=== PATIENT | male | born 1985 | race African-American/Black ===

== ENCOUNTER 2016-12-25 21:55 | Emergency (ER) | payer OTHER ==
[~2016-12-25] VITALS: Ht 180.3 cm; Wt 93.0 kg
[~2016-12-25 21:55] MED LIST: IBUPROFEN600 MG ORAL; NKM; TRAMADOL HCL50 MG ORAL
[2016-12-25] MEDS ORDERED: NKM (22:03)
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
[2016-12-25] MEDS ORDERED: IBUPROFEN600 MG ORAL (22:46)
[2016-12-25] MEDS ORDERED: ROBAXIN-750750 MG PO (22:46)
[2016-12-25 23:00] VITALS: BP 155/79
--- NOTE | 2016-12-26 11:04 | Diagnostic Imaging Report ---
Indication: TRAUMA, left lower rib pain, status post Technique: One view of the chest, multiple views of the left ribs Comparison: 05/23/2016 Findings: Lungs and pleural spaces are clear. Heart size is normal. No evidence of acute rib fracture. No evidence of pneumothorax. Impression: No acute process No acute bony trauma This agrees with the preliminary interpretation provided by the emergency room physician
== END 2016-12-25 23:00 | disposition home or self-care (01) ==
LOC: EMR 22:05
DX: S20.212A Contusion of left front wall of thorax, initial encounter (principal); V49.50XA Passenger injured in collision with unspecified motor vehicles in traffic accident, initial encounter; Y92.410 Unspecified street and highway as the place of occurrence of the external cause
CPT/HCPCS: 99284

== ENCOUNTER 2017-04-23 21:26 | Emergency (ER) | payer OTHER ==
[~2017-04-23 21:26] MED LIST changes: +ROBAXIN-750750 MG PO
--- NOTE | 2017-04-23 21:40 | Emergency Room Report ---
History of Present Illness General Chief Complaint: To Be Triaged Present Illness HPI Is a 31-year-old male who checked in for chief complaint of headache. When call he didn't show up. When I came to work, I saw him on the phone outside talking. He was in no distress. No focal deficit. I did not see this patient in the ER. Allergies: Coded Allergies: No Known Allergies (Unverified , 01/24/16) Patient History Past Medical History: see triage record, old chart reviewed Past Surgical History: other Pertinent Family History: other Reviewed Nursing Documentation: PMH: Agreed, PSxH: Agreed Nursing Documentation-PMH Hx Gastrointestinal Problems: Yes - kidney stones Medical Decision Making Diagnostic Impression: Primary Impression: Headache Qualified Codes: R51 - Headache Disposition: LEFT W/OUT BEING SEEN DOUGLAS RAY M.D. Apr 23, 2017 21:40
== END 2017-04-23 21:30 | disposition left against medical advice (07) ==
LOC: EMR 21:30
DX: R51 Headache (principal); Z53.21 Procedure and treatment not carried out due to patient leaving prior to being seen by health care provider
CPT/HCPCS: 99281

== ENCOUNTER 2017-06-04 04:31 | Emergency (ER) | payer OTHER ==
[~2017-06-04] VITALS: Ht 177.8 cm; Wt 86.2 kg
[2017-06-04 04:43] VITALS: BP 128/70
[2017-06-04] MEDS ORDERED: Tetanus/Diptheria/Pertussis Vaccine 0.5ml Syr IM ONE (04:45)
--- NOTE | 2017-06-04 04:46 | Emergency Room Report ---
History of Present Illness General Chief Complaint: Laceration Source: Patient Present Illness HPI Patient is a 31-year-old male presented after increased her left middle finger pain and numbness. Patient recent injury to the tip of his finger which he cut with a meat boner and slicer. Patient said this happened at work. Injury occurred approximately 36 hours prior to arrival. Patient does not known his last tetanus vaccine. 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 Allergies: Coded Allergies: No Known Allergies (Unverified , 01/24/16) Patient History Past Medical History: see triage record Reviewed Nursing Documentation: PMH: Agreed, PSxH: Agreed Nursing Documentation-PMH Hx Gastrointestinal Problems: Yes - kidney stones Review of Systems All Other Systems: negative except mentioned in HPI Physical Exam Vital Signs Date Time Temp Pulse Resp B/P (MAP) Pulse Ox O2 Delivery O2 Flow Rate FiO2 06/04/17 04:35 97.3 74 16 125/71 96 Room Air General Appearance: well appearing, no apparent distress, alert, GCS 15 Head: normocephalic, atraumatic ENT: hearing grossly normal, normal voice Neck: full range of motion, supple Respiratory: lungs clear, normal breath sounds, no respiratory distress, speaking full sentences Gastrointestinal: normal inspection Musculoskeletal: no calf tenderness Neurologic: normal inspection, alert, oriented x3, responsive, core analysis 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 Differential diagnoses included foreign body , fracture, nerve injury, arterial injury among others.X-ray imaging of the left hand middle finger 3 view interpreted by me showed normal bony alignment without fracture. The patient's laceration is old and is not amenable for suturing. The wound was dressed with bacitracin. The patient was placed on modified work beginning on 06/05. I with limited use of his left hand. The patient is keep his left hand clean and dry. Wound to be rechecked in 3 days. Tetanus vaccine was updated Last Vital Signs Date Time Temp Pulse Resp B/P (MAP) Pulse Ox O2 Delivery O2 Flow Rate FiO2 06/04/17 04:35 97.3 74 16 125/71 96 Room Air Status: improved Disposition: HOME, SELF-CARE Condition: Stable Scripts Bacitracin Zinc* (BACITRACIN ZINC*) 1 Each Packet 1 APPLIC TOPIC THREE TIMES A DAY, #30 PACKET Prov: Humberto Rankin 06/04/17 Humberto Rankin Jun 04, 2017 04:46
[2017-06-04] MEDS ORDERED: BACITRACIN ZIN1 EACH TOPIC (04:59)
[2017-06-04] MEDS ORDERED: Bacitracin Oint UD TOPIC ONE ×2 (05:00→05:02)
[2017-06-04 05:11] VITALS: BP 128/70
--- NOTE | 2017-06-04 11:59 | Diagnostic Imaging Report ---
Indication: PAIN, trauma, status post third digit laceration Technique: 3 views of the left third digit Comparison: None Findings: No acute fractures. No dislocations. Slight irregularity of the distal soft tissues may be related to stated clinical history of laceration. No radiopaque foreign body demonstrated Impression: No acute bony trauma
== END 2017-06-04 05:15 | disposition home or self-care (01) ==
LOC: EMR 04:49
DX: S61.313A Laceration without foreign body of left middle finger with damage to nail, initial encounter (principal); W27.4XXA Contact with kitchen utensil, initial encounter; Y93.G1 Activity, food preparation and clean up; Y92.511 Restaurant or cafe as the place of occurrence of the external cause; Y99.0 Civilian activity done for income or pay; Z23 Encounter for immunization
CPT/HCPCS: 90471; 90715; 99283

== ENCOUNTER 2017-06-29 01:59 | Emergency (ER) | payer MEDICAID, OTHER ==
[~2017-06-29] VITALS: Ht 177.8 cm; Wt 83.9 kg
[~2017-06-29 01:59] MED LIST changes: +BACITRACIN ZIN1 EACH TOPIC
[2017-06-29 02:13] VITALS: BP 109/69
[2017-06-29] MEDS ORDERED: Sodium Chloride 500ML 500 ML IV ONE (02:17)
[2017-06-29] MEDS ORDERED: Mylanta II UD 30ml ORAL ONE (02:30)
[2017-06-29] MEDS ORDERED: Lidocaine 2% Visc 15ml soln ORAL ONE (02:30)
[2017-06-29] MEDS ORDERED: Dicyclomine HCl 10mg/5ml oral soln ORAL ONE (02:30)
--- NOTE | 2017-06-29 02:39 | Emergency Room Report ---
History of Present Illness General Chief Complaint: Abdominal Pain Source: Patient Present Illness HPI 32-year-old male presents ED complaining of abdominal pain and vomiting. Started around 11 PM last night. Patient describes the pain is epigastric, sharp, 8/10, nonradiating. Notes multiple episodes of nausea and vomiting. Denies chest pain or shortness of breath. Denies fevers or chills. Denies any diarrhea. Denies sick contacts or recent travel. No other aggravating relieving factors. Denies any other associated symptoms Allergies: Coded Allergies: No Known Allergies (Unverified , 01/24/16) Patient History Past Medical History: HTN Past Surgical History: none Pertinent Family History: none Social History: Denies: smoking, alcohol use, drug use Immunizations: UTD Reviewed Nursing Documentation: PMH: Agreed, PSxH: Agreed Nursing Documentation-PMH Past Medical History: No History, Except For Hx Hypertension: Yes Hx Gastrointestinal Problems: Yes - Kidney stones Review of Systems All Other Systems: negative except mentioned in HPI Physical Exam Vital Signs Date Time Temp Pulse Resp B/P (MAP) Pulse Ox O2 Delivery O2 Flow Rate FiO2 06/29/17 02:02 97.5 79 16 114/84 99 Room Air Sp02 EP Interpretation: reviewed, normal General Appearance: no apparent distress, alert, GCS 15, non-toxic Head: normocephalic, atraumatic Eyes: bilateral eye normal inspection, bilateral eye PERRL ENT: hearing grossly normal, normal pharynx, no angioedema, normal voice Neck: full range of motion, supple/symm/no masses Respiratory: chest non-tender, lungs clear, normal breath sounds, speaking full sentences Cardiovascular #1: regular rate, rhythm, no edema Cardiovascular #2: 2+ carotid (R), 2+ carotid (L), 2+ radial (R), 2+ radial (L) , 2+ dorsalis pedis (R), 2+ dorsalis pedis (L) Gastrointestinal: normal bowel sounds, soft, non-distended, no guarding, no rebound, tenderness Rectal: deferred Genitourinary: normal inspection, no CVA tenderness Musculoskeletal: back normal, gait/station normal, normal range of motion, non- tender Neurologic: alert, oriented x3, responsive, motor strength/tone normal, sensory intact, speech normal Psychiatric: judgement/insight normal, memory normal, mood/affect normal, no suicidal/homicidal ideation Reflexes: 3+ bicep (R), 3+ bicep (L), 3+ tricep (R), 3+ tricep (L), 3+ knee (R) , 3+ knee (L) Skin: normal color, no rash, warm/dry, well hydrated Lymphatic: no adenopathy Medical Decision Making Diagnostic Impression: Primary Impression: Enteritis ER Course Hospital Course 32-year-old M presents to ED with abdominal pain, vomiting Differential diagnosis includes-appendicitis, cholecystitis, small bowel obstruction, gastritis, Clinical course Patient placed on stretcher. After initial history and physical I ordered labs , IV fluids, pain medications and CT scan Labs - no leukocytosis, electrolytes ok, LFTs normal CT scan shows enteritis/jejunitis Upon reassessment, patient states pain has improved. I feel this is a highly complex case requiring extensive working including EKG/ Rhythm strip, Xray/CT/US, Blood/urine lab work, repeat exams while in ED, and administration of strong opiates/narcotics for pain control, admission to hospital or close patient follow up. Diagnosis - enteritis Stable and discharged to home with Rx Zantac, Zofran. Followup with PMD. Return to ED if symptoms recur or worsen Labs Test 06/29/17 02:15 17 02:17 Sodium Level 141 MMOL/L (136-145) Potassium Level 3.9 MMOL/L (3.5-5.1) Chloride Level 106 MMOL/L (98-107) Carbon Dioxide Level 29 MMOL/L (21-32) Anion Gap 6 mmol/L (5-15) Blood Urea Nitrogen 17 mg/dL (7-18) Creatinine 1.4 MG/DL (0.55-1.30) Estimat Glomerular Filtration Rate > 60 mL/min (>60) Glucose Level 118 MG/DL (74-106) Calcium Level 9.3 MG/DL (8.5-10.1) Total Bilirubin 0.8 MG/DL (0.2-1.0) Aspartate Amino Transf (AST/SGOT) 26 U/L (15-37) Alanine Aminotransferase (ALT/SGPT) 33 U/L (12-78) Alkaline Phosphatase 73 U/L (46-116) Total Protein 7.7 G/DL (6.4-8.2) Albumin 4.2 G/DL (3.4-5.0) Globulin 3.5 g/dL Albumin/Globulin Ratio 1.2 (1.0-2.7) Lipase 134 U/L (73-393) White Blood Count 9.5 K/UL (4.8-10.8) Red Blood Count 4.89 M/UL (4.70-6.10) Hemoglobin 15.5 G/DL (14.2-18.0) Hematocrit 46.6 % (42.0-52.0) Mean Corpuscular Volume 95 FL (80-99) Mean Corpuscular Hemoglobin 31.6 PG (27.0-31.0) Mean Corpuscular Hemoglobin Concent 33.1 G/DL (32.0-36.0) Red Cell Distribution Width 12.4 % (11.6-14.8) Platelet Count 327 K/UL (150-450) Mean Platelet Volume 8.2 FL (6.5-10.1) Neutrophils (%) (Auto) 76.8 % (45.0-75.0) Lymphocytes (%) (Auto) 11.2 % (20.0-45.0) Monocytes (%) (Auto) 9.2 % (1.0-10.0) Eosinophils (%) (Auto) 1.8 % (0.0-3.0) Basophils (%) (Auto) 1.0 % (0.0-2.0) CT/MRI/US Diagnostic Results CT/MRI/US Diagnostic Results : Imaging Test Ordered: CT A/P Impression enteritis Last Vital Signs Date Time Temp Pulse Resp B/P (MAP) Pulse Ox O2 Delivery O2 Flow Rate FiO2 06/29/17 02:13 97.5 68 16 109/69 99 Room Air Status: improved Disposition: HOME, SELF-CARE Condition: Stable Scripts Ondansetron Odt* (ZOFRAN ODT*) 4 Mg Tab.rapdis 4 MG ORAL Q6H Y for Nausea & Vomiting, #30 TAB 0 Refills Prov: BRITTNY EAGLE M.D. 06/29/17 Ranitidine Hcl* (ZANTAC*) 150 Mg Tablet 150 MG ORAL TWICE A DAY, #30 TAB Prov: BRITTNY EAGLE M.D. 06/29/17 BRITTNY EAGLE M.D. Jun 29, 2017 02:39
[2017-06-29 02:41] LABS: EOSINOPHILS % (AUTO) 1.8 % (0.0-3.0); LYMPHOCYTES % (AUTO) 11.2 % (20.0-45.0); MEAN CORPUSCULAR HEMOGLOBIN 31.6 PG (27.0-31.0); MEAN CORPUSCULAR HGB CONC 33.1 G/DL (32.0-36.0); MEAN CORPUSCULAR VOLUME 95 FL (80-99); MEAN PLATELET VOLUME 8.2 FL (6.5-10.1); MONOCYTES % (AUTO) 9.2 % (1.0-10.0); NEUTROPHILS % (AUTO) 76.8 % (45.0-75.0); PLATELET COUNT 327 K/UL (150-450); RED BLOOD COUNT 4.89 M/UL (4.70-6.10); RED CELL DISTRIBUTION WIDTH 12.4 % (11.6-14.8); WHITE BLOOD COUNT 9.5 K/UL (4.8-10.8)
[2017-06-29 02:56] LABS: ANION GAP 6 mmol/L (5-15); CALCIUM 9.3 MG/DL (8.5-10.1); CARBON DIOXIDE 29 MMOL/L (21-32); CHLORIDE 106 MMOL/L (98-107); CREATININE 1.4 MG/DL (0.55-1.30); GLOMERULAR FILTRATION RATE > 60 mL/min (>60); POTASSIUM 3.9 MMOL/L (3.5-5.1); SODIUM 141 MMOL/L (136-145)
[2017-06-29 03:00] LABS: ALANINE AMINOTRANSFERASE 33 U/L (12-78); ALBUMIN/GLOBULIN RATIO 1.2 (1.0-2.7); ASPARTATE AMINO TRANSFERASE 26 U/L (15-37); LIPASE 134 U/L (73-393); TOTAL PROTEIN 7.7 G/DL (6.4-8.2)
[2017-06-29 03:24] VITALS: BP 105/68
[2017-06-29] MEDS ORDERED: Morphine Sulfate 4mg/ml Inj IVP ONE (03:30)
[2017-06-29] MEDS ORDERED: Ketorolac 30mg Inj IV ONE (03:30)
[2017-06-29] MEDS ORDERED: RANITIDINE HCL150 MG ORAL (04:22)
[2017-06-29] MEDS ORDERED: ZOFRAN ODT4 MG ORAL (04:22)
[2017-06-29 04:46] VITALS: BP 105/68
--- NOTE | 2017-06-29 08:11 | Diagnostic Imaging Report ---
Indication: Leg pain Technique: Continuous helical scanning was performed without any contrast material from the diaphragms through the pelvis . Axial, sagittal, and coronal images were generated. Dose: Total Dose Length Product - DLP [address] Dose Index - CTDIvol(s) 14.36 mGy. Automated exposure control was utilized for dose reduction. Comparison: None Findings: The liver, gallbladder, and spleen are unremarkable. The pancreas is normal. Adrenal glands are unremarkable. The kidneys are normal. There are no renal calculi. Aorta and inferior vena cava are normal caliber. The appendix is normal. There are some air-fluid levels in small bowel in the left upper quadrant. These loops are not dilated. The bowel is normal caliber. The bladder is unremarkable. Prostate and seminal vesicles are normal. Impression: Mild fluid-filled loops of small bowel in the left quadrant. This is nonspecific. Enteritis not excluded. Otherwise negative. The above report is concordant with preliminary reading by [employer] . The CT scanner at [facility] is accredited by the [employer] and the scans are performed using protocols designed to limit radiation exposure to as low as reasonably achievable to attain images of sufficient resolution adequate for diagnostic evaluation.
== END 2017-06-29 04:46 | disposition home or self-care (01) ==
LOC: EMR 02:30
DX: K29.70 Gastritis, unspecified, without bleeding (principal); I10 Essential (primary) hypertension; Z87.442 Personal history of urinary calculi
CPT/HCPCS: 36415; 74176; 80053; 83690; 85025; 96361; 96374; 96375; 99284; J1885; J2270; J2405; J7040; S0028